=== PATIENT | female | born 1995 | race Caucasian/White ===

== ENCOUNTER 2025-01-03 10:50 | Emergency (ER) | payer OTHER ==
[~2025-01-03] VITALS: Ht 149.9 cm; Wt 57.0 kg
[2025-01-03 11:02] VITALS: O2SAT 100
[2025-01-03] MEDS: ONDANSETRON 4MG ODT PO PRN (12:01)
[2025-01-03] MEDS: SODIUM CHLORIDE 0.9% 1,000 ML IV STA (12:25)
[2025-01-03 12:33] LABS: BASOPHILS % 0.4 % (0.0-2.0); EOSINOPHILS % 0.5 % (0.0-5.0); HEMATOCRIT. 37.0 % (36.0-48.0); HEMOGLOBIN. 12.3 g/dL (12.0-16.0); LYMPHOCYTES % 19.1 % (20.0-50.0); MEAN PLATELET VOLUME 6.4 fl (7.4-10.4); MONOCYTES % 5.0 % (2.0-8.0); NEUTROPHILS % 75.0 % (40.0-76.0); PLATELET 353 x1000/uL (130-400); RED BLOOD CELL COUNT 3.96 mill/uL (4.2-5.4); RED CELL DISTRIBUTION WIDTH 12.1 % (11.6-14.6)
[2025-01-03 12:48] LABS: CREATININE 0.6 mg/dL (0.6-1.0)
[2025-01-03 12:49] LABS: ETHANOL BLOOD 37 mg/dL (<10); UREA NITROGEN BLOOD 7 mg/dL (9-23)
[2025-01-03 12:50] LABS: ASPARTATE AMINOTRANSFERASE 16 IU/L (<34); BILIRUBIN DIRECT 0.1 mg/dL (<=3.0)
[2025-01-03 12:51] LABS: BILIRUBIN TOTAL 0.3 mg/dL (0.1-1.0); HCG SCREEN NEGATIVE; PROTEIN TOTAL 6.9 g/dL (6.0-8.3)
[2025-01-03] MEDS: HALOPERIDOL LACTATE 5MG/ML VIAL IM ONE (14:11)
[2025-01-03] MEDS: POTASSIUM CHLORIDE 20MEQ/PACKET PO ONE (14:27)
[2025-01-03 15:39] LABS: CLARITY URINE CLOUDY (CLEAR); COLOR URINE YELLOW (YELLOW); GLUCOSE URINE NEGATIVE (NEGATIVE); KETONES URINE TRACE (NEGATIVE); LEUKOCYTE ESTERASE URINE 2+ (NEGATIVE); NITRITE URINE NEGATIVE (NEGATIVE); OCCULT BLOOD URINE NEGATIVE (NEGATIVE); PH URINE 6.0 (4.5-8.0); PROTEIN URINE 1+ (NEGATIVE); SPECIFIC GRAVITY URINE 1.025 (1.005-1.030); UROBILINOGEN URINE 0.2 E.U./dL (0.2-1.0)
[2025-01-03 15:46] LABS: *AMPHETAMINES SCREEN URINE PRESUMPTIVE POSITIVE (NEGATIVE); *BARBITURATES SCREEN URINE NEGATIVE (NEGATIVE); *BENZODIAZEPINES SCREEN URINE NEGATIVE (NEGATIVE); *COCAINE SCREEN URINE NEGATIVE (NEGATIVE); METHADONE URINE SCREEN NEGATIVE (NEGATIVE)
[2025-01-03 15:47] LABS: CANNABINOID URINE SCREEN PRESUMPTIVE POSITIVE (NEGATIVE); ECSTASY MDMA SCREEN URINE CONF.TEST INDICATED (NEGATIVE); OPIATES URINE SCREEN NEGATIVE (NEGATIVE); PHENCYCLIDINE URINE SCREEN NEGATIVE (NEGATIVE)
[2025-01-03 16:06] LABS: SQUAMOUS EPITHELIAL CELL URINE 3+ /lpf (RARE/1+)
[2025-01-03 16:07] LABS: WBC URINE 25-50 /hpf (0-2)
[2025-01-03 16:08] LABS: BACTERIA URINE 2+
[2025-01-03] MEDS: NITROFURANTOIN 100MG M/M CAPSULE PO SCH (22:00)
[2025-01-04 04:56] VITALS: BP 106/60; PULSE 71; RESP 14; TEMP 36.9; O2SAT 99
== END 2025-01-04 05:00 ==
LOC: ER 10:50
DX: T50.902A Poisoning by unspecified drugs, medicaments and biological substances, intentional self-harm, initial encounter (principal); R45.851 Suicidal ideations; Z79.899 Other long term (current) drug therapy; Y92.89 Other specified places as the place of occurrence of the external cause
CPT/HCPCS: 80076; 80305; 80048; 81003; 80307; 80329; 80320; 84703; 83735; 85025; 87086; 87077; 36415; 93005; 96360; 99285; 87426; Q0162; J1630; J2060; J7030; Z7610 ×2; G0480